=== PATIENT | female | born 1970 | race Two or more races ===

== ENCOUNTER 2022-07-13 17:01 | Emergency (ER) | payer MEDICAID, OTHER ==
[~2022-07-13] VITALS: Ht 160 cm; Wt 90.0 kg
[2022-07-13 18:31] LABS: Albumin 3.6 g/dL (3.4-5.0)
[2022-07-13 18:33] LABS: BUN/Creatinine Ratio 14.1
[2022-07-13 18:36] LABS: Bilirubin, Total 0.3 mg/dL (0.2-1.0); Total Protein 6.7 g/dL (6.4-8.2)
[2022-07-13 18:42] LABS: Basophils # (auto) 0.1 10 ^3/uL (0-0.2); Basophils % (auto) 1.1 % (0.0-2.0); Eosinophils # (auto) 0.1 10 ^3/uL (0-0.8); Eosinophils % (auto) 2.3 % (0.0-7.0); Hematocrit 40.1 % (36.0-46.0); Hemoglobin 13.2 g/dL (12.2-16.2); Lymphocytes # (auto) 2.3 10 ^3/uL (0.4-5.4); Lymphocytes % (auto) 36.7 % (10.0-50.0); Mean Corpuscular Hemoglobin 27.5 pg (28.0-32.0); Mean Corpuscular Hgb Conc. 32.8 g/dL (32.0-36.0); Mean Corpuscular Volume 83.9 fL (80.0-100.0); Monocytes # (auto) 0.4 10 ^3/uL (0-1.3); Monocytes % (auto) 6.2 % (0.0-12.0); Neutrophils # (auto) 3.4 10 ^3/uL (1.6-8.6); Neutrophils % (auto) 53.7 % (37.0-80.0); Nucleated Red Blood Cells % 0.1 %; Red Blood Cells 4.78 10^6/uL (4.0-5.20); Red Cell Distribution Width 13.5 % (11.8-14.3); White Blood Cell 6.3 10^3/uL (4.4-10.8)
[2022-07-14] MEDS ORDERED: AZIT250T9 PO (00:58)
[2022-07-14 01:17] VITALS: BP 149/99
== END 2022-07-14 01:17 | disposition home or self-care (01) ==
LOC: ER 17:01
DX: R07.89 Other chest pain (principal); J20.9 Acute bronchitis, unspecified; Z88.6 Allergy status to analgesic agent
CPT/HCPCS: 36415; 71045; 80053; 84484; 85025; 93005

== ENCOUNTER 2022-08-09 12:47 | Emergency (ER) | payer MEDICAID ==
[~2022-08-09] VITALS: Ht 160 cm; Wt 88.4 kg
[~2022-08-09 12:47] MED LIST: AZIT250T9 PO
[2022-08-09 15:08] VITALS: BP 150/94
== END 2022-08-09 15:54 | disposition home or self-care (01) ==
LOC: ER 12:47
DX: G56.01 Carpal tunnel syndrome, right upper limb (principal); Z88.8 Allergy status to other drugs, medicaments and biological substances

== ENCOUNTER 2023-06-15 14:41 | Emergency (ER) | payer MEDICAID ==
[~2023-06-15] VITALS: Ht 162.6 cm; Wt 81.9 kg
[~2023-06-15 14:41] MED LIST changes: +AZIT-43 PO; -AZIT250T9 PO
[2023-06-15 16:57] VITALS: BP 152/82; PULSE 64; RESP 16; TEMP 97.1; O2SAT 99
[2023-06-15] MEDS ORDERED: DexAMETHasone SOD PHOS 10MG/1ML VIAL INJ IM ONE (17:15)
[2023-06-15] MEDS ORDERED: HYDROcodone-ACET 5/325MG TAB PO ONE (17:15)
[2023-06-15] MEDS ORDERED: KETOROLAC TROMETH 60MG/2ML VIAL IM ONE (17:15)
[2023-06-15] MEDS ORDERED: HYDR-4902 PO (17:26)
== END 2023-06-15 17:50 | disposition home or self-care (01) ==
LOC: ER 14:41
DX: G56.03 Carpal tunnel syndrome, bilateral upper limbs (principal); M77.9 Enthesopathy, unspecified; M79.645 Pain in left finger(s); M79.644 Pain in right finger(s); Z88.6 Allergy status to analgesic agent
CPT/HCPCS: 29125; 73130; 96372; 99284; J1100; J1885

== ENCOUNTER 2023-12-18 13:43 | Emergency (ER) | payer MEDICAID ==
[~2023-12-18] VITALS: Ht 162.6 cm; Wt 84.1 kg
[~2023-12-18 13:43] MED LIST changes: +HYDR-4902 PO
[2023-12-18 14:19] VITALS: BP 128/89; PULSE 83; RESP 18; TEMP 98.4; O2SAT 100
[2023-12-18] MEDS ORDERED: PRED20TA2 PO (14:49)
[2023-12-18] MEDS ORDERED: AUG875T PO (14:49)
== END 2023-12-18 14:56 | disposition home or self-care (01) ==
LOC: ER 13:43
DX: J01.90 Acute sinusitis, unspecified (principal); Z88.6 Allergy status to analgesic agent
CPT/HCPCS: 71045

== ENCOUNTER 2025-08-06 13:12 | Emergency (ER) | payer MEDICAID, OTHER ==
[~2025-08-06] VITALS: Ht 152.4 cm; Wt 80.3 kg
[~2025-08-06 13:12] MED LIST changes: +AUG875T PO; +PRED20TA2 PO
[2025-08-06] MEDS ORDERED: METH-1181 PO (15:11)
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
[2025-08-06] MEDS: methylPREDNISolone SOD SUCC 125 MG/2 ML VL IM ONE (16:16)
[2025-08-06 16:53] VITALS: BP 147/98; PULSE 75; RESP 16; TEMP 98.2; O2SAT 99
== END 2025-08-06 16:56 | disposition home or self-care (01) ==
LOC: ER 13:12
DX: M54.50 Low back pain, unspecified (principal); Z79.899 Other long term (current) drug therapy; Z88.5 Allergy status to narcotic agent; Z79.52 Long term (current) use of systemic steroids
CPT/HCPCS: 96372; 99283; J2919

== ENCOUNTER 2025-08-07 05:57 | Emergency (ER) | payer MEDICAID, OTHER ==
[~2025-08-07] VITALS: Ht 160 cm; Wt 80.0 kg
[~2025-08-07 05:57] MED LIST changes: +METH-1181 PO
[2025-08-07 06:00] VITALS: BP 133/91; PULSE 78; RESP 18; TEMP 97.8; O2SAT 100
== END 2025-08-07 07:21 | disposition left against medical advice (07) ==
LOC: ER 05:57
DX: R20.0 Anesthesia of skin (principal); Z79.899 Other long term (current) drug therapy